=== PATIENT | male | born 1970 | race Caucasian/White ===

== ENCOUNTER 2017-02-15 09:38 | Emergency (ER) | payer MEDICAID, OTHER ==
[~2017-02-15] VITALS: Ht 172.7 cm; Wt 92.0 kg
[2017-02-15 09:47] VITALS: Ht 172.7 cm; Wt 92.0 kg
[2017-02-15] MEDS ORDERED: morphine 4 MG/ML VIAL IV STA (10:24)
[2017-02-15] MEDS ORDERED: ONDANSETRON 4 MG INJ IV STA (10:24)
[2017-02-15 11:13] LABS: ADD UMIC NO; UR ASCORBIC ACID NEGATIVE (NEGATIVE); UR BILIRUBIN (Dip) NEGATIVE (NEGATIVE); UR BLOOD (Dip) NEGATIVE (NEGATIVE); UR CLARITY CLEAR (CLEAR); UR COLOR YELLOW (YELLOW); UR GLUCOSE (Dip) 3+ mg/dL (NEGATIVE); UR KETONES (Dip) 1+ mg/dL (NEGATIVE); UR LEUKOCYTE ESTERASE (Dip) NEGATIVE Leu/ul (NEGATIVE); UR NITRITE (Dip) NEGATIVE (NEGATIVE); UR SPECIFIC GRAVITY (Dip) 1.036 (1.003-1.030); UR TOTAL PROTEIN (Dip) NEGATIVE (NEGATIVE); UR UROBILINOGEN (Dip) NEGATIVE (NEGATIVE)
[2017-02-15 11:16] LABS: BASOPHILS % 0.4 % (0.0-2.0); EOSINOPHILS # 0.1 10^3/ul (0.0-0.5); EOSINOPHILS % 1.3 % (0.0-7.0); HEMATOCRIT 46.3 % (42.0-52.0); HEMOGLOBIN 16.3 g/dl (14.0-18.0); LYMPHOCYTES # 1.9 10^3/ul (0.8-2.9); LYMPHOCYTES % 26.4 % (15.0-51.0); MEAN CORPUSCULAR HEMOGLOBIN 30.5 pg (29.0-33.0); MEAN CORPUSCULAR HGB CONC 35.2 g/dl (32.0-37.0); MEAN CORPUSCULAR VOLUME 86.5 fl (82.0-101.0); MEAN PLATELET VOLUME 10.1 fl (7.4-10.4); MONOCYTE # 0.7 10^3/ul (0.3-0.9); MONOCYTES % 9.4 % (0.0-11.0); NEUTROPHILS % 62.2 % (39.0-77.0); PLATELET COUNT 173 10^3/UL (140-415); RED BLOOD COUNT 5.35 10^6/ul (4.70-6.10); RED CELL DISTRIBUTION WIDTH 11.9 % (11.5-14.5)
[2017-02-15 11:30] LABS: ALBUMIN 4.4 g/dl (3.3-4.9); ALBUMIN/GLOBULIN RATIO 1.46; BILIRUBIN,INDIRECT 0.4 mg/dl (0-1.1); BILIRUBIN,TOTAL 0.4 mg/dl (0.2-1.3); CREATININE 0.6 mg/dl (0.61-1.24); POTASSIUM 4.1 mmol/L (3.5-5.1); TOTAL PROTEIN 7.4 g/dl (6.1-8.1)
--- NOTE | 2017-02-15 12:27 | RADRPT ---
PROCEDURE: CT Abdomen and Pelvis without contrast. CLINICAL INDICATION: Left lower quadrant pain. Abdominal pain. TECHNIQUE: CT scan of the abdomen and pelvis without contrast was performed on a multi-slice CT [facility] without intravenous contrast. Coronal and sagittal reformatted images were obtained from the axial source images. Images were reviewed on a high-resolution PACS workstation. One or more of the following does reduction techniques were used: Automated exposure control; adjustment of the mA an d/or kV according to patient size; use of the aorta of reconstruction technique. The total exam CTD I equals 20.71 mGy and the total exam DLP equals 1304.41 mGy-cm. COMPARISON: None available. FINDINGS: There is mild bibasilar bronchial wall thickening and areas of peripheral atelectasis and/or scarrin g. Heart size is normal, and there is no evidence of pericardial thickening or effusion. There is marked decreased attenuation of the hepatic parenchyma consistent with fatty infiltration. There is a 1.0 cm hyperdense lesion in the dome of the liver, nonspecific in the absence of intrave nous contrast, likely representing a small hemangioma. The liver, spleen, and pancreas are otherwis e normal given the limitations of a noncontrast CT examination. The gallbladder is normal. The adrenal glands are normal. The kidneys without renal calculus or hydronephrosis. The aorta is of normal caliber. There is no retroperitoneal lymph node enlargment. There is no evidence of large or small bowel obstruction. A normal appendix is identified. No trupti e fluid or fluid collections are identified. No inflammatory changes are seen. There is a small per iumbilical hernia containing only fat. Evaluation of the pelvis is limited due to hardware artifact from right sacroiliac fusion and pubic symphysis fusion. There are multiple associated healed pelvic fractures. No enlarged pelvic sidewa ll lymph nodes are seen. The bladder is within normal limits. No free fluid is identified. There are moderate bilateral inguinal hernias containing only fat. Multiple chronic, healed pelvic fractures are present as well as pelvic hardware which appears intac t. The bones are otherwise intact. IMPRESSION: 1. No CT evidence of acute intra-abdominal or pelvic process. 2. Bibasilar bronchiectasis and bronchial wall thickening with peripheral atelectasis and scarring. This may be a chronic finding or may represent acute bronchitis. 3. Fatty infiltration of the liver. 4. Nonspecific 1 cm hyperdense lesion in the dome of the liver likely representing small hemangioma . This can be further evaluated with multi phase CT/MR of the liver. 5. Bilateral moderate inguinal hernias and small periumbilical hernia containing only fat. 6. Multiple healed pelvic fractures and hardware from prior pelvic repair. RPTAT: KK .Josiah Larson MD, MD Date Time Electronically viewed and signed by .Josiah Larson MD, MD on 02/15/2017 12:27 .B/
[2017-02-15] MEDS ORDERED: KETOROLAC 30 MG INJ IV STA (12:42)
[2017-02-15] MEDS ORDERED: TRAM-40 PO (12:49)
[2017-02-15] MEDS ORDERED: METF500T4 PO (12:49)
[2017-02-15] MEDS ORDERED: BENA20TA65 PO (12:49)
--- NOTE | 2017-02-15 12:54 | ERD ---
ER Documentation Chief Complaint Date/Time DATE: 02/15/17 TIME: 12:52 Chief Complaint LEFT ABDOMINAL PAIN SINCE YESTERDAY HPI This 47-year-old male presents with left-sided abdominal pain since yesterday. He denies any fevers, nausea vomiting, urinary complaints, diarrhea constipation. Patient denies any previous medical history. Patient denies any right-sided abdominal pain. ROS All systems reviewed and are negative except as per history of present illness. Medications Home Meds Active Scripts Tramadol Hcl* (Ultram*) 50 Mg Tablet, 50 MG PO Q6H Y for PAIN, #15 TAB Prov:DORON ROWLAND MD 02/15/17 Benazepril Hcl* (Lotensin*) 20 Mg Tablet, 20 MG PO DAILY, #30 TAB Prov:DORON ROWLAND MD 02/15/17 Metformin* (Glucophage*) 500 Mg Tab, 500 MG PO BID, #60 TAB Prov:DORON ROWLAND MD 02/15/17 PMhx/Soc Medical and Surgical Hx: pt denies Medical Hx, pt denies Surgical Hx History of Surgery: No Anesthesia Reaction: No Hx Neurological Disorder: No Hx Respiratory Disorders: No Hx Cardiac Disorders: No Hx Psychiatric Problems: No Hx Miscellaneous Medical Probl: No Hx Alcohol Use: No Hx Substance Use: No Hx Tobacco Use: No Smoking Status: Never smoker Physical Exam Vitals Vital Signs Date Time Temp Pulse Resp B/P Pulse Ox O2 Delivery O2 Flow Rate FiO2 02/15/17 09:47 97.6 88 16 192/115 95 Physical Exam Const: [], [id number] per Head: Atraumatic Eyes: Normal Conjunctiva ENT: Normal External Ears, Nose and Mouth. Neck: Full range of motion..~ No meningismus. Resp: Clear to auscultation bilaterally Cardio: Regular rate and rhythm, no murmurs Abd: Soft, tender in the left mid abdomen. No tenderness at McBurney's point no Matos sign. non distended. Normal bowel sounds Skin: No petechiae or rashes Back: No midline or flank tenderness Ext: No cyanosis, or edema Neur: Awake and alert Psych: Normal Mood and Affect Result Diagram: 02/15/17 1045 02/15/17 1045 Results 24 hrs Laboratory Tests Test 02/15/17 10:45 White Blood Count 7.010^3/ul Red Blood Count 5.3510^6/ul Hemoglobin 16.3g/dl Hematocrit 46.3% Mean Corpuscular Volume 86.5fl Mean Corpuscular Hemoglobin 30.5pg Mean Corpuscular Hemoglobin Concent 35.2g/dl Red Cell Distribution Width 11.9% Platelet Count 76743^3/UL Mean Platelet Volume 10.1fl Neutrophils % 62.2% Lymphocytes % 26.4% Monocytes % 9.4% Eosinophils % 1.3% Basophils % 0.4% Nucleated Red Blood Cells % 0.0/100WBC Neutrophils # (Manual) 410^3/ul Lymphocytes # 1.910^3/ul Monocytes # 0.710^3/ul Eosinophils # 0.110^3/ul Basophils # 0.010^3/ul Nucleated Red Blood Cells # 0.010^3/ul Urine Color YELLOW Urine Clarity CLEAR Urine pH 6.0 Urine Specific [place] 1.036 Urine Ketones 1+mg/dL Urine Nitrite NEGATIVEmg/dL Urine Bilirubin NEGATIVEmg/dL Urine Urobilinogen NEGATIVEmg/dL Urine Leukocyte Esterase NEGATIVELeu/ul Urine Hemoglobin NEGATIVEmg/dL Urine Glucose 3+mg/dL Urine Total Protein NEGATIVEmg/dl Sodium Level 136mmol/L Potassium Level 4.1mmol/L Chloride Level 98mmol/L Carbon Dioxide Level 28mmol/L Anion Gap 14 Blood Urea Nitrogen 12mg/dl Creatinine 0.60mg/dl Glucose Level 273mg/dl Calcium Level 9.0mg/dl Total Bilirubin 0.4mg/dl Direct Bilirubin 0.00mg/dl Indirect Bilirubin 0.4mg/dl Aspartate Amino Transf (AST/SGOT) 17IU/L Alanine Aminotransferase (ALT/SGPT) 45IU/L Alkaline Phosphatase 84IU/L Total Protein 7.4g/dl Albumin 4.4g/dl Globulin 3.00g/dl Albumin/Globulin Ratio 1.46 Lipase 53U/L Current Medications Medications (Trade) Dose Ordered Sig/Manfred Route PRN Reason Start Time Stop Time Status Last Admin Dose Admin Morphine Sulfate (morphine) 4 mg ONCE STAT IV 02/15/17 10:24 02/15/17 10:26 DC 02/15/17 10:47 Ondansetron HCl (Zofran Inj) 4 mg ONCE STAT IV 02/15/17 10:24 02/15/17 10:26 DC 02/15/17 10:47 Ketorolac Tromethamine (Toradol) 30 mg ONCE STAT IV 02/15/17 12:42 02/15/17 12:43 UNV Procedures/MDM The uncertain cause of abdominal pain further studies were obtained. CBC is normal. CMP shows a blood sugar of 273, otherwise normal normal lipase. Urine shows trace ketones and glucose otherwise no blood, nitrates or leukocytes. Patient was given Zofran 4 mg of morphine 4 mg IV. Patient improved abdominal pain with minimal tenderness on serial exam. Given the uncertain cause of pain concern for abscess or diverticulitis CT abdomen pelvis shows no acute findings to explain source of pain. Patient is elevated blood pressure at triage. Signs and symptoms do not suggest aortic disease, abscess, obstruction, additional emergent causes of presenting complaints. Patient will be treated with Glucophage, Lotensin and tramadol for pain and primary care follow-up. Patient is advised to return for fevers, vomiting, blood, right-sided abdominal pain, new worsening symptoms with primary care doctor this week. Patient shows no signs or symptoms to suggest ketoacidosis. The patient was stable with no new complaints during the ER course. Clinically, there is no current evidence to suggest meningitis, sepsis, acute abdomen, pneumonia, acute coronary syndrome , pulmonary embolism, or any other emergent condition appearing to require further evaluation or hospitalization. The patient should certainly return for any new or worsening symptoms per the aftercare instructions. They should otherwise follow-up with her primary care doctor for reevaluation this week. Disclaimer: Inadvertent spelling and grammatical errors are likely due to EHR/ dictation software use and do not reflect on the overall quality of patient care. Also, please note that the electronic time recorded on this note does not necessarily reflect the actual time of the patient encounter. Departure Diagnosis: Primary Impression: Hypertension Hypertension type: essential hypertension Qualified Code: I10 - Essential hypertension Additional Impressions: Diabetes Diabetes mellitus type: other specified (including CINDI) Diabetes mellitus complication status: with unspecified complications Diabetes mellitus intermediate insulin use: without intermediate use Qualified Code: E13.8 - Other specified diabetes mellitus with complication, without long-term current use of insulin Abdominal pain Abdominal location: left lower quadrant Qualified Code: R10.32 - Left lower quadrant pain Condition: Stable Patient Instructions: Abdominal Pain, High Blood Pressure (Hypertension), DIABETES, General Info Referrals: [facility] Usted se g[place]rie hecho un examen mdico de control que le indica que no est en sal condicin que requiera tratamiento urgente en el Departamento de Emergencia. Un estudio ms profundo y el tratamiento de wolf condicin pueden esperar sin ningn riesgo hasta que usted sea atendida/o en el consultorio de wolf mdico o sal cl surjit. Es responsabilidad suya arreglar sal jens para el seguimiento del osbaldo. MANEJO DE CONDICIONES NO URGENTES EN EL FUTURO 1) Si usted tiene un mdico de atencin primaria: Usted debera llamar a wolf mdico de atencin primaria antes de venir al departamento de emergencia. Despus de las horas de consultorio, wolf doctor o wolf asociado/a est disponible por telfono. El mdico o enfermero de torsten en el servicio telefnico puede asesorarle por [place] medio para atender el problema, o osbaldo contrario se puede programar sal jens. 2) Si usted no tiene un mdico de atencin primaria: Llame al mdico o clnica de referencia que aparece abajo [place] las horas de consultorio para hacer sal jens para que le vean. CLINICAS: [facility] [phone] [facility] [phone] [facility] [phone] [facility]. [facility] [phone] [facility]. [place] [phone] [facility]. [phone] [address] Additional Instructions: VAMOS A EMPEZAR TRATAMIENTO PARA DIABETES Y PRESION. Cheque otro vez con wolf doctor primario en el proximo patricia or regresa para mas o nueva simptomas. DORON ROWLAND MD Feb 15, 2017 12:54
== END 2017-02-15 13:18 | disposition home or self-care (01) ==
LOC: FTE 09:38
DX: I10 Essential (primary) hypertension (principal); R10.12 Left upper quadrant pain; E13.8 Other specified diabetes mellitus with unspecified complications; Z79.84 Long term (current) use of oral hypoglycemic drugs
CPT/HCPCS: 36415; 74176; 80053; 81003; 83690; 85025; 96374; 96375; J2270; J2405; Z7502